=== PATIENT | female | born 1980 | race African-American/Black ===

== ENCOUNTER 2022-04-02 13:09 | Emergency (ER) | payer OTHER ==
[~2022-04-02] VITALS: Ht 165.1 cm; Wt 70.0 kg
[~2022-04-02 13:09] MED LIST: ALBU2.5V13 IH; ALBU6.7H15 IH; ALBUTEROL INHALER; ATROVUD IH; FLUT1DIS3 IH; LEVO500T2 PO; MONT10TA21 PO; P20 PO
[2022-04-02 13:23] VITALS: BP 123/83
== END 2022-04-02 16:44 | disposition home or self-care (01) ==
LOC: ER 13:09
DX: S09.8XXA Other specified injuries of head, initial encounter (principal); V43.62XA Car passenger injured in collision with other type car in traffic accident, initial encounter; Y93.89 Activity, other specified; Y92.410 Unspecified street and highway as the place of occurrence of the external cause; J45.909 Unspecified asthma, uncomplicated; Z90.710 Acquired absence of both cervix and uterus; Z98.890 Other specified postprocedural states
CPT/HCPCS: 99284